=== PATIENT | female | born 1930 | race Caucasian/White ===

== ENCOUNTER → 2018-01-12 | Day surgery (SDC) | payer MEDICARE ==
--- NOTE | 2018-01-06 16:12 | Diagnostic Imaging Report ---
PROCEDURE: Frontal and lateral views of the chest. COMPARISON: None. INDICATIONS: PREOP SURGERY ON THURSDAY LEFT ANKLE FINDINGS: Lines/tubes: None. Lungs: The lungs are well inflated and clear. There is no evidence of pneumonia or pulmonary edema. Pleura: There is no pleural effusion or pneumothorax. Heart and mediastinum: The heart and the mediastinum are normal. Bones: No acute bony abnormality. L1 vertebral body compression deformity with evidence of vertebroplasty. T11 vertebral body anterior wedge deformity of indeterminate age. Degenerative changes of the left shoulder. IMPRESSION: 1. No acute cardiopulmonary disease. Dictated by: Keon Gold M.D. on 01/06/2018 at 16:15 Electronically approved by: Keon Gold M.D. on 01/06/2018 at 16:15
[2018-01-06 16:41] LABS: BASOPHILS # (AUTO) 0.1 (0.0-0.1); BASOPHILS % 0.5 % (0.0-1.0); EOSINOPHILS # (AUTO) 0.1 (0.0-0.4); EOSINOPHILS % 0.9 % (0.0-6.0); HEMATOCRIT 42.5 % (34.2-44.1); HEMOGLOBIN 14.3 g/dL (12.0-16.0); LYMPHOCYTES # (AUTO) 2.9 (1.0-3.2); LYMPHOCYTES % 31.7 % (18.0-39.1); MEAN CORPUSCULAR HEMOGLOBIN 29.6 pg (28-32); MEAN CORPUSCULAR HGB CONC 33.6 g/dL (31-35); MONOCYTES # (AUTO) 0.7 (0.2-0.8); MONOCYTES % 7.1 % (4.4-11.3); NEUTROPHILS # (AUTO) 5.5 (2.1-6.9); NEUTROPHILS % 59.5 % (38.7-80.0); PLATELET COUNT 302 x10e3/uL (140-360); RED BLOOD COUNT 4.83 x10e6/uL (3.6-5.1); RED CELL DISTRIBUTION WIDTH 12.9 % (11.7-14.4)
[2018-01-06 16:57] LABS: ANION GAP 13.9 mmol/L (8-16); BLOOD UREA NITROGEN 18 mg/dL (7-26); BUN/CREATININE RATIO 22 (6-25); CALCIUM 9.9 mg/dL (8.4-10.2); CARBON DIOXIDE 25 mmol/L (22-29); CHLORIDE 104 mmol/L (98-107); CREATININE, SERUM 0.83 mg/dL (0.57-1.11); EST GLOMERULAR FILTRATION RATE > 60 ML/MIN (60-); GLUCOSE 182 mg/dL (74-118); POTASSIUM 3.9 mmol/L (3.5-5.1); SODIUM 139 mmol/L (136-145)
[~2018-01-12] MED LIST: ACETAMINOPHEN325 M1 PO; ARICEPT5 MG PO; ARTIFICIAL TEAR15 ML OP; BACLOFEN10 MG PO; BUPIVACAINE HCL 0.5% INJ 30 ML VIAL INJ ONE; CLINDAMYCIN 600MG/D5W 50ML 50 ML IV ONE; CLONIDINE HCL0.1 MG PO; COUMADIN3 MG PO; FENTANYL CITRATE/PF 100MCG/2 ML INJ ONE; FOSAMAX70 MG PO; GLIPIZIDE; HUMALOG100 UNIT/1 SC; LEVEMIR100 UNIT/1 SC; LIDOCAINE HCL 2% LOCAL INJ 5 ML SDV VIAL INJ ONE; LISINOPRIL10 MG PO; LOVASTATIN20 MG PO; NAMENDA10 MG PO; NORVASC5 MG PO; OMEGA 3 1,0001 EACH PO; ONDANSETRON HCL INJ 2 MG/ML VIAL ONE; PROPOFOL IV EMULSION 10 MG/ML 20 ML VIAL ONE; SEVOFLURANE INHAL SOLN 250 ML PEN BTL ONE; THERAGRAN-M PR1 EAC1 PO; Z.0.PLAVIX75 MG
--- OUTSIDE RECORDS SUMMARY | 2018-01-12 07:52 | XMS REPORT ---
Author Author [facility] Address Unknown Phone Unavailable Care Team Providers Care Tapper Operator Name Role Phone [facility] Unavailable Unavailable Problems This patient has no known problems. Allergies, Adverse Reactions, Alerts This patient has no known allergies or adverse reactions. Medications This patient has no known medications. Results Test Description Test Time Test Comments Text Results Atomic Results Result Comments CHEST 2 VIEWS 2018-01-06 16:15:00 [facility] [address] [address] Patient Name: TOMAS SANTOS MR #: [id number] : 1930 Age/Sex: 87/F Req #: [id number] [facility] Physician: Ordered by: JEAN-PIERRE ONEILL MD Report #: [id number] Location: OR Room/Bed: Procedure: [id number] DX/CHEST 2 VIEWS Exam Date: 01/06/18 Exam Time: 1530 REPORT STATUS: Signed PROCEDURE: Frontal and lateral views of the chest. COMPARISON: None. INDICATIONS: PREOP SURGERY ON THURSDAY LEFT ANKLE FINDINGS: Lines/tubes: None. Lungs: The lungs are well inflated and clear. There is no evidence of pneumonia or pulmonary edema. Pleura: There is no pleural effusion or pneumothorax. Heart and mediastinum: The heart and the mediastinum are normal. Bones: No acute bony abnormality. L1 vertebral body compression deformity with evidence of vertebroplasty. T11 vertebral body anterior wedge deformity of indeterminate age. Degenerative changes of the left shoulder. IMPRESSION: 1. No acute cardiopulmonary disease. Dictated by: Keon Garvin M.D. on 01/06/2018 at 16:15 Electronically approved by: Keon Garvin M.D. on 01/06/2018 at 16:15 Dictated By: KEON GARVIN MD [id number] COPY TO: JEAN-PIERRE ONEILL MD
[2018-01-12 08:37] LABS: INR 1.09; PROTHROMBIN TIME 13.3 seconds (11.9-14.5)
[2018-01-12 08:38] LABS: PARTIAL THROMBOPLASTIN TIME 26.3 seconds (23.8-35.5)
--- NOTE | 2018-01-12 10:56 | Operative Report ---
DATE OF PROCEDURE: January 12, 2018 [employer] MACHINE: Jose Aviles PA-C The patient was brought to the operating room for induction of anesthesia. Throughout this case, my PA's assistance was necessary for retraction of soft tissue and positioning of the extremity. This allows for efficient and technically successful execution of the operation and is considered medically necessary. PREOPERATIVE DIAGNOSIS: Complications regarding internal fixation device, left ankle. POSTOPERATIVE DIAGNOSIS: Complications regarding internal fixation device, left ankle. PROCEDURE: Left ankle hardware removal. INDICATIONS: The patient is a frail, 87-year-old lady with moderate dementia. She is a [facility] resident. She is a few years status post an ORIF of her left ankle. A 4.5-mm malleolar screw was placed into the medial malleolus. This has periodically caused some skin breakdown over the medial aspect. At present, there is just a minor eschar. We have discussed the findings and options with the family. They would like to have this removed. The risks and benefits were explained. They state they understand and wish to proceed. DESCRIPTION OF PROCEDURE: The patient was brought to the operating room and placed under general anesthetic. The left lower extremity was prepped and draped in a sterile manner. A preoperative time out was performed. A small incision was made over the medial malleolus. The screw was very prominent and easily cleared of soft tissue. This was removed with a hexagonal screwdriver. The wound was irrigated and closed with a single subcuticular Vicryl stitch and Steri-Strips. A sterile bandage was applied. She was extubated and transported to the recovery room in stable condition. There was no blood loss, and all needle and sponge counts were correct. Job#: [id number]
== END | disposition home or self-care (01) ==
LOC: OR 07:49
PROVIDERS: ATTEND Specialist
DX: T84.623A Infection and inflammatory reaction due to internal fixation device of left tibia, initial encounter (principal); I49.3 Ventricular premature depolarization; I69.398 Other sequelae of cerebral infarction; R53.1 Weakness; F03.90 Unspecified dementia, unspecified severity, without behavioral disturbance, psychotic disturbance, mood disturbance, and anxiety; G47.33 Obstructive sleep apnea (adult) (pediatric); I10 Essential (primary) hypertension; E11.9 Type 2 diabetes mellitus without complications; Y83.8 Other surgical procedures as the cause of abnormal reaction of the patient, or of later complication, without mention of misadventure at the time of the procedure; Z01.810 Encounter for preprocedural cardiovascular examination; Z01.812 Encounter for preprocedural laboratory examination; Z01.818 Encounter for other preprocedural examination; Z79.4 Long term (current) use of insulin; Z79.02 Long term (current) use of antithrombotics/antiplatelets; Z88.0 Allergy status to penicillin; Z87.440 Personal history of urinary (tract) infections
CPT/HCPCS: 20680; 36415 ×2; 71046; 80048; 82948; 85025; 85610; 85730; 93005; J2001; J2405